=== PATIENT | male | born 1995 | race Caucasian/White ===

== ENCOUNTER 2019-06-26 01:21 | Emergency (ER) | payer MEDICAID ==
[~2019-06-26] VITALS: Ht 177.8 cm; Wt 76.2 kg
[2019-06-26 01:30] VITALS: Ht 177.8 cm; Wt 76.2 kg
[2019-06-26 02:35] LABS: BASOPHIL % 0.1 % (0-2); PLATELET COUNT 116 x10^3mcL (130-400); RED CELL DISTRIBUTION WIDTH 13.2 % (11.5-14.5)
[2019-06-26 02:42] LABS: ALKALINE PHOSPHATASE 69 U/L (46-116); ALT/SGPT 51 U/L (16-63); AST/SGOT 36 U/L (15-37); BILIRUBIN TOTAL 0.47 mg/dL (0.20-1.00); CALCIUM 9.1 mg/dL (8.5-10.1); CARBON DIOXIDE 32.7 mmol/L (21-32); CHLORIDE SERUM 99 mmol/L (98-107); GFR1 > 60 mL/min; GLUCOSE SERUM 97 mg/dL (74-106); LIPASE 114 IU/L (73-393); SODIUM SERUM 139 mmol/L (136-145); TOTAL PROTEIN, SERUM 7.5 g/dL (6.4-8.2)
[2019-06-26 03:29] VITALS: BP 121/80
== END 2019-06-26 03:30 | disposition home or self-care (01) ==
LOC: ED 01:21
PROVIDERS: Student in an Organized Health Care Education/Training Program
DX: K52.9 Noninfective gastroenteritis and colitis, unspecified (principal); E86.0 Dehydration
CPT/HCPCS: J2405; J7030